=== PATIENT | female | born 1955 | race Caucasian/White ===

== ENCOUNTER 2016-07-23 07:00 | Inpatient (IN) | payer MEDICARE ==
[2016-07-24 05:44] LABS: HCT 32.7 % (37.0-47.0); HGB 10.7 g/dl (12.5-16.0); MCH 31.8 pg (25.0-31.0); MCHC 32.7 g/dL (32.0-36.0); MCV 97.3 fL (78.0-100.0); MPV 10.7 fL (6.0-9.5); RBC 3.36 M/uL (4.20-5.40); RDW 13.1 % (11.5-14.0); WBC 18.4 K/uL (4.0-10.5)
--- NOTE | 2016-07-24 07:44 | NUR ---
BLADDER SCAN DONE WITH 447 CC IN BLADDER, IN AND OUT CATH DONE WITH 310 OUT. SENT OFF FOR UA WITH C&S PER
[2016-07-24 15:59] LABS: CREATININE 0.6 mg/dL (0.5-1.0); POTASSIUM 5.3 mmol/L (3.5-5.1)
[2016-07-25 05:09] LABS: HCT 24.9 % (37.0-47.0); HGB 8.3 g/dl (12.5-16.0); MCH 31.4 pg (25.0-31.0); MCHC 33.3 g/dL (32.0-36.0); MCV 94.3 fL (78.0-100.0); RBC 2.64 M/uL (4.20-5.40); RDW 12.9 % (11.5-14.0); WBC 8.8 K/uL (4.0-10.5)
[2016-07-25 05:32] LABS: CREATININE 0.6 mg/dL (0.5-1.0); POTASSIUM 3.7 mmol/L (3.5-5.1)
[2016-07-26 05:57] LABS: HCT 24.5 % (37.0-47.0); MCH 31.5 pg (25.0-31.0); MCHC 32.7 g/dL (32.0-36.0); MCV 96.5 fL (78.0-100.0); MPV 11.3 fL (6.0-9.5); RBC 2.54 M/uL (4.20-5.40); RDW 13.3 % (11.5-14.0); WBC 9.4 K/uL (4.0-10.5)
[2016-07-26 06:09] LABS: CREATININE 0.6 mg/dL (0.5-1.0); POTASSIUM 3.5 mmol/L (3.5-5.1)
[2016-07-26] MEDS ORDERED: ASPIRIN CHEWABL81 MG PO (15:33)
[2016-07-26] MEDS ORDERED: DEPAKOTE ER250 MG PO ×2 (15:34)
[2016-07-26] MEDS ORDERED: ARICEPT10 MG PO (15:34)
[2016-07-26] MEDS ORDERED: FLOMAX0.4 MG PO (15:34)
[2016-07-26] MEDS ORDERED: KLONOPIN1 MG PO (15:34)
[2016-07-26] MEDS ORDERED: DESYREL50 MG PO (15:35)
[2016-07-26] MEDS ORDERED: LISINOPRIL5 MG PO (15:35)
[2016-07-26] MEDS ORDERED: SYNTHROID50 MCG PO (15:35)
[2016-07-26] MEDS ORDERED: VITAMIN B-121000 MC1 PO (15:35)
[2016-07-26] MEDS ORDERED: PROZAC40 MG PO (15:35)
[2016-07-26] MEDS ORDERED: KEPPRA500 MG PO (15:35)
[2016-07-26] MEDS ORDERED: XARELTO10 MG PO (15:36)
[2016-07-26] MEDS ORDERED: FEOSOL325 MG PO (15:36)
[2016-07-26] MEDS ORDERED: OXY-IR 5MG5 MG PO (15:36)
== END 2016-07-26 16:55 | DRG 470 ==
LOC: FMS 07:00
PROVIDERS: ADMIT Legal Medicine
PROC: 8E0YXBZ Computer Assisted Procedure of Lower Extremity (ICD-10-PCS; 2016-07-23)
PROC: 0SRC0J9 Replacement of Right Knee Joint with Synthetic Substitute, Cemented, Open Approach (ICD-10-PCS; principal; 2016-07-23 10:30)
DX: M17.11 Unilateral primary osteoarthritis, right knee (principal); F03.90 Unspecified dementia, unspecified severity, without behavioral disturbance, psychotic disturbance, mood disturbance, and anxiety; D62 Acute posthemorrhagic anemia; M21.061 Valgus deformity, not elsewhere classified, right knee; M71.21 Synovial cyst of popliteal space [Baker], right knee; E03.9 Hypothyroidism, unspecified; F41.9 Anxiety disorder, unspecified; I10 Essential (primary) hypertension; Z22.322 Carrier or suspected carrier of Methicillin resistant Staphylococcus aureus
CPT/HCPCS: 36415; 73560; 80048; 86850; 86900; 86901; 87088; 88305; 88311; 94010; 94760; 94762; 97110; 97116; 97163; 97167; 97530-GP; 97535; C1713; C1776; J0131; J1100; J1170; J1885; J2270; J2405; J2704; J2795; J2916; J3010